=== PATIENT | female | born 1960 | race Caucasian/White ===

== ENCOUNTER 2018-01-05 16:02 | Inpatient (IN) | payer MEDICARE, MEDICAID ==
[~2018-01-05] VITALS: Ht 172.7 cm; Wt 92.5 kg
[2018-01-05] MEDS ORDERED: ZOLPIDEM TARTRATE 10 MG TABLET PO (16:15)
[2018-01-05] MEDS ORDERED: IBU 600 MG TABLET PO (16:15)
[2018-01-05] MEDS ORDERED: LITHIUM CARBONATE 300 MG TAB PO (16:15)
[2018-01-05] MEDS ORDERED: INVEGA TRINZA IM (16:15)
[2018-01-05] MEDS ORDERED: CHLORPROMAZINE 100 MG (16:15)
[2018-01-05 16:39] LABS: *BILIRUBIN,URIN NEGATIVE (NEGATIVE); *BLOOD, URINE NEGATIVE (NEGATIVE); *CLARITY,URINE SLIGHTLY CLOUDY (CLEAR); *COLOR,URINE YELLOW (YELLOW); *KETONES,URINE NEGATIVE (NEGATIVE); *PROTEIN,URINE NEGATIVE (NEGATIVE); *UROBILINOGEN,URINE 0.2 E.U./dl (NORMAL); LEUKOCYTE ESTERASE ,URINE TRACE (NEGATIVE); NITRITE, URINE POSITIVE (NEGATIVE); PH,URINE 5.5 (5.0-8.0); UGLUCOSE NEGATIVE (NEGATIVE)
[2018-01-05 16:48] LABS: BACTERIA,URINE MANY /HPF (NONE SEEN); MUCUS,URINE MODERATE /LPF (0-FEW); SQUAMOUS EPITHELIAL CELL,UR MODERATE /HPF (NONE SEEN)
[2018-01-05 16:49] LABS: BASOPHILS # (AUTO) 0.1 K/uL (0.0-8.0); EOSINOPHILS # (AUTO) 0.2 K/uL (0.0-0.7); HEMATOCRIT 38.8 % (31.2-41.9); HEMOGLOBIN 12.9 g/dL (10.9-14.3); LYMPHOCYTES # (AUTO) 2.6 K/uL (20.0-40.0); LYMPHOCYTES % (AUTO) 26.7 % (20.5-51.5); MEAN CORPUSCULAR HEMOGLOBIN 30.8 uug (24.7-32.8); MEAN CORPUSCULAR HGB CONC 33 g/dL (32.3-35.6); MEAN CORPUSCULAR VOLUME 92.9 fL (75.5-95.3); MONOCYTES # (AUTO) 0.7 K/uL (2.0-10.0); MONOCYTES % (AUTO) 7.6 % (0.0-11.0); NEUTROPHILS # (AUTO) 6.1 K/uL (1.8-8.9); NEUTROPHILS % (AUTO) 62.7 % (38.5-71.5); PLATELET COUNT (AUTO) 352 K/uL (179-408); RED BLOOD CELL COUNT(AUTO) 4.17 MIL/uL (3.63-4.92); WHITE BLOOD COUNT (AUTO) 9.8 K/uL (3.8-11.8)
[2018-01-05 16:55] LABS: *AMPHETAMINE, URINE NEGATIVE (NEGATIVE); *BARBITURATE, URINE NEGATIVE (NEGATIVE); *CANNABINOID, URINE NEGATIVE (NEGATIVE); *COCCAINE, URINE NEGATIVE (NEGATIVE); *OPIATE, URINE NEGATIVE (NEGATIVE); *PHENCYCLIDINE SCREEN,URINE NEGATIVE (NEGATIVE)
[2018-01-05 16:56] LABS: CARBON DIOXIDE 24 mmol/L (21-32); CHLORIDE 104 mmol/L (98-107); CREATININE 0.7 mg/dL (0.6-1.3); GLUCOSE 100 mg/dL (74-106); POTASSIUM 3.6 mmol/L (3.5-5.1); UREA NITROGEN, BLOOD 10 mg/dL (7-18)
[2018-01-05 17:01] LABS: ALANINE AMINOTRANSFERASE 36 U/L (14-59); ALKALINE PHOSPHATASE 92 U/L (50-136); ASPARTATE AMINOTRANSFERASE 26 U/L (15-37); BILIRUBIN,DIRECT 0.1 mg/dL (0.0-0.2); BILIRUBIN,TOTAL 0.4 mg/dL (0.2-1.0); TOTAL PROTEIN, SERUM 7.4 g/dL (6.4-8.2)
[2018-01-05 17:02] LABS: ETHANOL < 3 MG/DL (0-0)
[2018-01-05 17:03] LABS: ACETAMINOPHEN < 2.0 ug/mL (10-30)
--- NOTE | 2018-01-05 17:10 | NUR ---
Per pt is medically clear and may be transfered to MHU.
--- NOTE | 2018-01-05 17:16 | NUR ---
Pt trans to MHU, NAD noted.
[2018-01-05 17:24] LABS: THYROID STIMULATING HORMONE 1.571 mIU/mL (0.358-3.740)
[2018-01-05] MEDS ORDERED: MAGNESIUM HYDROXIDE 30 ML LIQUID UDC PO PRN (17:45)
[2018-01-05] MEDS ORDERED: MAG HYDROX/AL HYDROX/SIMETH 30 ML LIQUID UDC PO PRN (17:45)
--- NOTE | 2018-01-05 19:28 | NUR ---
Unable to Admiit patient in the computer. All paper works done in the chart. Endorsed to shift manager night. Night nurse will do remaining admisssion.
[2018-01-05] MEDS ORDERED: diphenhydrAMINE 50 MG/1 ML VIAL IM ONE (19:30)
[2018-01-05] MEDS ORDERED: HALOPERIDOL LACTATE 5 MG/1 ML VIAL IM ONE (19:30)
[2018-01-05] MEDS ORDERED: LORAZEPAM 2 MG/1 ML VIAL IM ONE (19:30)
[2018-01-05 20:06] VITALS: BP 116/56
[2018-01-05] MEDS ORDERED: diphenhydrAMINE 50 MG/1 ML VIAL ONE (20:09)
[2018-01-05] MEDS ORDERED: ALBUTEROL SULFATE 2.5 MG/3 ML NEBU NEB PRN (22:15)
[2018-01-05] MEDS ORDERED: IPRATROPIUM BROMIDE 0.5 MG/2.5 ML NEBU NEB PRN (22:15)
[2018-01-05] MEDS: NITROFURANTOIN/NITROFURAN MAC 100 MG CAPSULE PO SCH (23:00)
[2018-01-06] MEDS: LORAZEPAM 1 MG TABLET PO PRN ×2 (01:47→08:59)
[2018-01-06] MEDS: NITROFURANTOIN/NITROFURAN MAC 100 MG CAPSULE PO SCH ×3 (01:55→20:32)
--- NOTE | 2018-01-06 02:35 | NUR ---
Received pt to care, pt talking loudly, intrusive, posturing towards staff, demanding, hyperverbal, uncooperative, grandiose delusions, responding to AH & VH. Pt was called on the telephone to try to speak to her and calm her down. Pt re-oriented, pt continued to pace the halls, going into other pt rooms, responding to internal stimuli, demanding to go home, pushing on the exit doors. T/O obtained at 1830 for haldol 5mg/1ml, benadryl 25mg/0.5ml, ativan 2mg/1ml. Pt complied with taking the IM shot without altercation at 1915. Pt continued to pace, cry loudly, yell, at approximately 2145 pt fell asleep. Pt woke up at 2330 responding to internal stimuli, talking loudly, PRN ativan 1 mg given at 0145. Pt was more pleasant but still delusional, pt initially refused antibiotic but stated that she wanted to take med. Med was given as a unscheduled admin at 0145. Pt is A & O x2, pt is tangential, ambulatory, continent, objective signs of urinary frequency noted, pt skin intact, no noted issues. Pt is back asleep at this time. I will continue to monitor.
[2018-01-06] MEDS: NICOTINE 21 MG/24HR PATCH TD SCH (08:33)
[2018-01-06 15:42] VITALS: BP 100/52
[2018-01-06] MEDS ORDERED: FLUPHENAZINE HCL 5 MG TABLET PO ONE (18:15)
[2018-01-06] MEDS ORDERED: BENZTROPINE MESYLATE 1 MG TABLET PO ONE (18:15)
[2018-01-06] MEDS ORDERED: CARBAMAZEPINE 200 MG TABLET PO ONE (18:15)
[2018-01-06] MEDS ORDERED: FLUPHENAZINE HCL 2.5 MG/ML 10ML VIAL IM STA (19:02)
[2018-01-06] MEDS ORDERED: diphenhydrAMINE 50 MG/1 ML VIAL IM STA (19:04)
[2018-01-06] MEDS ORDERED: LORAZEPAM 2 MG/1 ML VIAL IM STA (19:05)
[2018-01-06] MEDS ORDERED: BENZTROPINE MESYLATE 2 MG/2 ML AMPUL IM STA (19:13)
[2018-01-07] MEDS: TEMAZEPAM 7.5 MG CAPSULE PO PRN (01:05)
[2018-01-07] MEDS: LORAZEPAM 1 MG TABLET PO PRN ×2 (02:01→06:09)
--- NOTE | 2018-01-07 07:29 | NUR ---
Patient first observed yelling and hitting the door asking to be let out of the unit. Patient observed to be inappropriate towards staff and peers, unable to redirect. Psychiatrist ordered IM STAT, IM administered as ordered. Patient continued to display bizarre behavior, nonsensical required redirection despite medication. Patient had multiple periods with increased agitation, prns also administered with ineffective outcome. Patient disturbed all other patients on the unit throughout the entire night. Continue to monitor for safety. Patient last observed pacing the hallway inappropriate towards staff and peers.
[2018-01-07] MEDS: CARBAMAZEPINE 200 MG TABLET PO SCH ×3 (09:01→17:01)
[2018-01-07] MEDS: BENZTROPINE MESYLATE 1 MG TABLET PO SCH ×3 (09:01→17:01)
[2018-01-07] MEDS: FLUPHENAZINE HCL 5 MG TABLET PO SCH ×3 (09:01→17:01)
[2018-01-07] MEDS: NITROFURANTOIN/NITROFURAN MAC 100 MG CAPSULE PO SCH ×2 (09:41→20:52)
[2018-01-07] MEDS: NICOTINE 21 MG/24HR PATCH TD SCH (09:41)
[2018-01-07] MEDS: CLONAZEPAM 0.5 MG TABLET PO SCH ×3 (12:37→20:02)
--- NOTE | 2018-01-07 15:33 | NUR ---
Firearms Report: clothing trades workers completed and submitted a [employer] firearms report for a a 5150 DTS/DTO certification.
[2018-01-07 16:02] VITALS: BP 107/55
--- NOTE | 2018-01-07 19:45 | NUR ---
RECEIVED PATIENT IN THE HALLWAY; SHE IS NOTED PACING THE HALLWAY, GOING INTO OTHER PATIENT'S ROOM, GRABBING TRASH CANS, UNABLE TO BE REDIRECTED. PATIENT WAS ALSO NOTED WITH WEAK UNSTEADY GAIT. DR LAST WAS NOTIFY AND NEW ORDER OBTAINED TO PLACE PATIENT ON 1:1 SUPERVISION FOR FALL PRECAUTION. ORDER NOTED AND CARRIED OUT. WILL CONTINUE TO MONITOR.
[2018-01-07 21:04] VITALS: BP 114/54
--- NOTE | 2018-01-08 01:30 | NUR ---
PATIENT NOTED AWAKE, FLIGHT OF IDEAS, UNABLE TO FALL ASLEEP. TEMAZEPAM 7.5MG PO PRN WAS GIVEN FOR INSOMNIA. WILL CONTINUE TO MONITOR.
[2018-01-08] MEDS: TEMAZEPAM 7.5 MG CAPSULE PO PRN (01:32)
--- NOTE | 2018-01-08 03:45 | NUR ---
PATIENT NOTED ANXIOUS AGITATED, TALKING TO HERSELF. ATIVAN 1MG PO PRN WAS OFFERED; HOWEVER PATIENT REFUSED, PATIENT CONTINUE TO 1:1 SUPERVISION FOR FALL PRECAUTION.
[2018-01-08] MEDS: LORAZEPAM 1 MG TABLET PO PRN (05:39)
--- NOTE | 2018-01-08 05:45 | NUR ---
PATIENT CONTINUE ANXIOUS AGITATED TALKING TO HERSELF. ATIVAN 1MG PO PRN WAS GIVEN. WILL CONTINUE TO MONITOR.
--- NOTE | 2018-01-08 06:33 | NUR ---
PATIENT SLEPT FOR APPROX 3.15 HRS THROUGH THE NIGHT. CONTINUE WITH PRESSURE SPEECH, ANXIOUS, PACING THE HALLWAY, WONDERING INTO OTHER PATIENT'S ROOM, RESPONDING TO INTERNAL STIMULI UNREDIRECTABLE, IMPAIRED INSIGHT AND JUDGMENT. PATIENT WILL CONTINUE ON 1:1 SUPERVISION FOR SAFETY.
[2018-01-08 07:30] VITALS: BP 105/59
[2018-01-08] MEDS: CLONAZEPAM 0.5 MG TABLET PO SCH ×2 (09:39→20:16)
[2018-01-08] MEDS: CARBAMAZEPINE 200 MG TABLET PO SCH ×3 (09:39→17:32)
[2018-01-08] MEDS: NITROFURANTOIN/NITROFURAN MAC 100 MG CAPSULE PO SCH ×2 (09:39→20:16)
[2018-01-08] MEDS: FLUPHENAZINE HCL 5 MG TABLET PO SCH ×3 (09:39→17:32)
[2018-01-08] MEDS: NICOTINE 21 MG/24HR PATCH TD SCH (09:40)
[2018-01-08] MEDS: BENZTROPINE MESYLATE 1 MG TABLET PO SCH ×3 (09:40→17:32)
--- NOTE | 2018-01-08 12:04 | NUR ---
Initial Discharge Notes: Currently pt is living at home ([address] [place] [address]) with her Horacio Salcedo ([phone]). Pt is requesting to d/c home with her . Social work will contact pts and collaborate with staff for safe discharge.
[2018-01-08 16:56] VITALS: BP 96/45
[2018-01-08] MEDS ORDERED: TDAP DIPH,PERTUSS,TET VAC/PF 0.5 ML DISP.SYRIN IM ONE (17:00)
--- NOTE | 2018-01-08 17:00 | NUR ---
PT ATTEMPTED TO PET A DOG THAT WAS PRESENT ON THE UNIT AND WAS BITTEN ON THE RIGHT FOURTH FINGER. PT HAS LACERATION ON RIGHT 4TH FINGER. ENRIQUE MANZANARES NP NOTIFIED, HAND X RAY, ORDERS FOR WOUND CONSULT, AND TDAP VACCINE RECEIVED. WOUND CLEANED AND KEPT DRY. WILL CONTINUE TO MONITOR. Addendum: 01/08/18 at 1818 by IGNACIO IRIZARRY RN AMENDMENT: DOG BITE HAPPENED AT 1456.
[2018-01-08] MEDS: BACITRACIN ZINC OINT 15 GM TUBE TOP SCH ×2 (17:51→20:17)
[2018-01-08 20:45] VITALS: BP 93/63
[2018-01-09] MEDS: TEMAZEPAM 7.5 MG CAPSULE PO PRN ×3 (01:01→23:32)
[2018-01-09] MEDS: LORAZEPAM 1 MG TABLET PO PRN (02:45)
--- NOTE | 2018-01-09 06:25 | NUR ---
Pt is more compliant, pt took her scheduled meds, pt very labile, pt would start making noises like she is crying and then start talking about something else in a pleasant mood. Pt slept intermittently. Pt kept req to call her during the late hours of the night. Pt is asking about a bimal speaker to play music. Pt did not come in with a bimal speaker. Pt is disoriented, confused, delusional. Pt refused to take PRN restoril. Pt states that she does not want any more medication because she keeps sleeping. Pt is on 1:1 for safety, pt gait is unsteady when she walks.
[2018-01-09 07:30] VITALS: BP 99/53
[2018-01-09] MEDS: CARBAMAZEPINE 200 MG TABLET PO SCH ×4 (09:00→17:59)
[2018-01-09] MEDS: FLUPHENAZINE HCL 5 MG TABLET PO SCH ×4 (09:00→21:21)
[2018-01-09] MEDS: NICOTINE 21 MG/24HR PATCH TD SCH ×2 (09:00→09:13)
[2018-01-09] MEDS: CLONAZEPAM 0.5 MG TABLET PO SCH ×2 (09:00→09:13)
[2018-01-09] MEDS: BENZTROPINE MESYLATE 1 MG TABLET PO SCH ×4 (09:00→17:59)
[2018-01-09] MEDS: BACITRACIN ZINC OINT 15 GM TUBE TOP SCH ×2 (09:00→21:00)
[2018-01-09] MEDS: NITROFURANTOIN/NITROFURAN MAC 100 MG CAPSULE PO SCH ×2 (09:13→21:21)
--- NOTE | 2018-01-09 11:23 | NUR ---
Discharge Planning: egg worker arrived to patient bedside to discuss discharge plan. Patient presented with hyperverbal, delusional, and disorganized speech and thought process. egg worker inquired why she brought homeless people to her home at 2:30am [as noted in chart] and she stated "they were fine", they had "make-up on". Patient lacking insight, judgment, and safety awareness. egg worker expressed concern for her returning home, however, patient adamant that she return home "as soon as possible". egg worker unable to have meaningful conversation with patient due to delusional thought process and lack of orientation. However, patient did provide name of outpatient mental health provider, Shayla Hernandez [[phone]], who patient states "has all of my information". egg worker will follow-up with outpatient provider. egg worker called and spoke with patient , Horacio Salcedo [[phone]] about patient discharge plan. Per Horacio, patient is unmanageable at home and has unpredictable behavior. Horacio expressed great concern about her returning home and feels he cannot take care of her as he works timekeeping supervisor and cannot afford to lose his job. egg worker explained that a SNF could be an option, but that it would depend on whether she is accepted to one. egg worker discussed conservatorship process with Horacio and offered to provide resources on conservatorship process. egg worker will leave conservatorship resources for Horacio to tow picker when he visits over the weekend. egg worker will look into SNF placement.
--- NOTE | 2018-01-09 11:40 | NUR ---
WOUND CARE CONSULT: PT PRESENTS WITH HEALING SKIN TEAR TO RT 4TH FINGER. NO DRAINAGE NOTED, NO REDNESS, TENDERNESS OR SIGN OF INFECTION. PT EXAMINED BY ENRIQUE MANZANARES D.N.P. AND ORDERS RECEIVED. DISCUSSED WITH NURSING STAFF. WILL SEE PRN.
--- NOTE | 2018-01-09 15:42 | NUR ---
Group Activity Note: Patients were asked to listen to music and engage in conversation about their favorite music/genre of music/and memories they have of music. Subjective: "I want to listen to Joseph Sheikh." Objective: Patient engaged in the activity and initiated conversation with her peers. Patient also attempted to change the song on the Media player several times, and she attempted to unlock the bookshelf with her hands. Assessment: Patient appeared restless, distractible, and labile during the activity. Patient needs support in staying on task and recognizing social cues. Plan: Encourage group attendance as scheduled.
[2018-01-09 16:16] VITALS: BP 111/71
--- NOTE | 2018-01-09 18:17 | NUR ---
patient remains on 1;1 and paranoid about all things medication sprinkled in food in order for patient to take ambulatory in main and day room with 1;1 sitter no behavior problems noted continue to monitor for safety and delusions
[2018-01-09 19:30] VITALS: BP 106/59
--- NOTE | 2018-01-10 06:10 | NUR ---
Pt paced all night long, crying, asking to smoke, praying loudly in kiswahili, trying to open the exit doors, yelling, delusional, asking for her car keys that are missing. Pt initially kept refusing a nicotine patch but property underwriter was able to convince her. Pt states that she wants to go home to her "2 cats and sleep in her own bed". Pt states that she does not want to "sleep in the room with another man". Pt informed that her roommate is a woman, pt states that she still "does not want to sleep in the room" with her. Pt remains on 1:1 for safety. Pt appears manic and not effected by meds, although drowsy body language (stumbling gait, slow hand movements) and with slurred speech. Pt has a high tolerance for the meds, pt appears to be fighting her sleep. Pt states that she "is not fighting my sleep" but does not want to sleep because she has "been asleep for 24 hours" "and the day before that and the day before that". Pt "swears to God" that if we "let her go home I will be good", "I won't talk to myself", "I won't do anything wrong". Pt very labile and tangential.
[2018-01-10 07:30] VITALS: BP 110/56
[2018-01-10] MEDS: CARBAMAZEPINE 200 MG TABLET PO SCH ×4 (08:45→17:00)
[2018-01-10] MEDS: BENZTROPINE MESYLATE 1 MG TABLET PO SCH ×4 (08:45→17:00)
[2018-01-10] MEDS: FLUPHENAZINE HCL 5 MG TABLET PO SCH ×5 (08:45→21:11)
[2018-01-10] MEDS: NITROFURANTOIN/NITROFURAN MAC 100 MG CAPSULE PO SCH (08:45)
[2018-01-10] MEDS: NICOTINE 21 MG/24HR PATCH TD SCH ×2 (08:46→09:00)
[2018-01-10] MEDS: CLONAZEPAM 0.5 MG TABLET PO SCH ×4 (08:55→17:00)
[2018-01-10] MEDS: BACITRACIN ZINC OINT 15 GM TUBE TOP SCH ×2 (09:00→20:47)
--- NOTE | 2018-01-10 13:23 | NUR ---
Gps/Crane Assembler- Remains on 1:1 Nursing supervision for safety. Ambulatory, anxious,labile mood,conversant. Stayed in the activity room during her lunch. Refused all 1300 meds. ,reviewed with patient, claimed she does not needs any mediciations she's just fine. Patient came looking for her Nurse she decided she needs to take her clonopin 0.5 mg 1 tab. only, the rest she does not have to take.Conversant,needy.loud.
[2018-01-10 16:18] VITALS: BP 120/63
--- NOTE | 2018-01-10 18:13 | NUR ---
Gps/Wicker Molded Candles- Refusing her pneumonia vaccine as well as her flu vaccine, per pt. she got her immunization at [facility] Refusing most of her routine medications, was able to take her clonopin 0.5 mg twice today as ordered , but refused the 1700 dose. Remains on 1:1 Nursing supervision for safety.
[2018-01-10 20:00] VITALS: BP 110/56
--- NOTE | 2018-01-10 20:00 | NUR ---
PT SEEN AMBULATING IN HALLWAY WITH SITTER PRESENT. NO S/S OF AGITATION OR SUICIAL IDEATION. STATES SHE ONLY WANTS HER SEROQUEL FOR TONIGHT. NEEDS REORIETATION TO PLACE AND REGARDING PLAN OF CARE. WILL CONTINUE TO MONITOR. V/S ARE WNL. DENIES ANY PAIN OR DISCOMFORT.
[2018-01-10] MEDS: TEMAZEPAM 7.5 MG CAPSULE PO PRN (20:42)
--- NOTE | 2018-01-10 21:04 | NUR ---
PT REFUSED ROUTINE PROLOXIN AND BACITRACIN MEDICATION FOR TONIGHT. STATES SHE ONLY WANTED HER SEROQUEL FOR SLEEP. PT OFFERED RESTORIL FOR SLEEP INSTEAD. DR ALST AWARE OF REFUSING MEDICATIONS. WILL CONTINUE TO MONITOR.
--- NOTE | 2018-01-10 21:17 | NUR ---
DR LAST ABLE TO SPEAK WITH PT AND ENCOURAGE TAKING ROUTINE PROLIXIN. PT ABLE TO TAKE ROUITINE BED TIME MEDICATION BUT REFUSED WOUND CARE OINTMENT. NO S/S OF INFECTION NOTED TO LEFT 4TH DIGIT FINGER.
--- NOTE | 2018-01-11 04:00 | NUR ---
Pt up out of bed pacing hallways. Needs frequent reorientation and redirection. Pt encouraged to sleep more without talking to staff.
--- NOTE | 2018-01-11 06:00 | NUR ---
Pt slept up to 2 hours overnight. Mostly awake and communicating with staff. Needs continuous reminders regarding plan of care and redirection.
[2018-01-11] MEDS: CLONAZEPAM 0.5 MG TABLET PO SCH ×3 (08:45→17:00)
[2018-01-11] MEDS: CARBAMAZEPINE 200 MG TABLET PO SCH ×3 (08:45→17:00)
[2018-01-11] MEDS: FLUPHENAZINE HCL 5 MG TABLET PO SCH ×3 (08:45→21:00)
[2018-01-11] MEDS: BENZTROPINE MESYLATE 1 MG TABLET PO SCH ×3 (08:45→17:00)
[2018-01-11] MEDS: NICOTINE 21 MG/24HR PATCH TD SCH (08:46)
[2018-01-11] MEDS: BACITRACIN ZINC OINT 15 GM TUBE TOP SCH ×2 (08:46→21:00)
--- NOTE | 2018-01-11 08:46 | NUR ---
Gps/Truck Guard- Patient refused all am routine meds.this am. reviewed with patient rationale, educ. re -her meds. still refused, claimed she only takes seroquel med.. and nothing else. Claimed it was a mistake elisabeth she took prolixin tab.after Psychiatrist convinced her into taking . Talkative/conversant jumping from one topics to another.
[2018-01-11 10:23] VITALS: BP 105/66
[2018-01-11] MEDS: ACETAMINOPHEN 325 MG TABLET PO PRN (13:57)
[2018-01-11 15:53] VITALS: BP 107/56
[2018-01-11] MEDS: LORAZEPAM 1 MG TABLET PO PRN (20:06)
--- NOTE | 2018-01-11 20:10 | NUR ---
PATIENT IS VERY ANXIOUS AND PACING THROUGHOUT HALLWAY. PATIENT GIVEN ATIVAN 1MG PO PRN FOR ANXIETY/AGITATION. COMPLIANT WITH TAKING MED. WILL CONTINUE TO MONITOR AND ASSESS.
[2018-01-11 22:05] VITALS: BP 126/58
--- NOTE | 2018-01-11 23:00 | NUR ---
PATIENT STILL VERY ANXIOUS. NEEDS FREQUENT REDIRECTION. LABILE MOOD,. ATIVAN INEFFECTIVE. PATIENT GIVEN RESTORIL 7.5MG PO PRN FOR SLEEP. WILL CONTINUE TO MONITOR AND ASSESS.
[2018-01-11] MEDS: TEMAZEPAM 7.5 MG CAPSULE PO PRN (23:08)
--- NOTE | 2018-01-12 00:08 | NUR ---
RESTORIL INEFFECTIVE. PATIENT NEEDS FREQUENT REDIRECTION.
[2018-01-12 07:30] VITALS: BP 109/58
--- NOTE | 2018-01-12 08:03 | NUR ---
PT NOTED QUITE MANIC, DELUSIONAL AND PARANOID. PT THINKS STAFF IS CONSPIRING AGAINST HER TO KEEP HER FROM "GETTING TO MY TONIGHT." PT NOTED WITH WORD SALAD, HYPERVERBAL, SPEAKING NONSENSICALS MOST TIMES. TANGENTIAL SPEECH. QUITE LABILE AT THIS TIME, WITH SEVERE MOOD SWINGS. ELATED ONE MINUTE, THE NEXT, PT WILL START SOBBING UNCONTROLLABLY. NEEDS FREQUENT REDIRECTION. CONSTANTLY AT NURSES STATION MAKING MULTIPLE NONSENSICAL DEMANDS AND BIZARRE STATEMENTS. STATES SHE NEEDS TO LEAVE TO WALK TO THE "[email or web address]". STATES "LETITIA SAHU IS MY FRIEND, I HAVE HIS NUMBER IN MY PHONE." SHE WILL SWITCH FROM SPEAKING KHMER TO SPEAKING LUXEMBOURGISH AT TIMES. PT ALSO EXHIBITING QUITE BIZARRE BEHAVIOR, ATTEMPTING TO OPEN SHOWER DOOR "BECAUSE I NEED TO GO TO THE BATHROOM IN THE SHOWER." PT FIXATED ON USING TELEPHONE PROVIDED, YET PT JUST DIALS VARIOUS NUMBERS OVER AND OVER AGAIN.
[2018-01-12] MEDS: NICOTINE 21 MG/24HR PATCH TD SCH (09:00)
[2018-01-12] MEDS: BENZTROPINE MESYLATE 1 MG TABLET PO SCH ×3 (09:00→17:00)
[2018-01-12] MEDS: CLONAZEPAM 0.5 MG TABLET PO SCH ×3 (09:00→17:00)
[2018-01-12] MEDS: FLUPHENAZINE HCL 5 MG TABLET PO SCH ×3 (09:00→20:17)
[2018-01-12] MEDS: BACITRACIN ZINC OINT 15 GM TUBE TOP SCH ×2 (09:00→21:00)
[2018-01-12] MEDS: CARBAMAZEPINE 200 MG TABLET PO SCH ×3 (09:00→17:00)
[2018-01-12] MEDS: ACETAMINOPHEN 325 MG TABLET PO PRN (10:11)
[2018-01-12 15:10] VITALS: BP 106/34
--- NOTE | 2018-01-12 15:27 | NUR ---
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 PT ALSO STATES SHE KNOWS LUL AND SURESH LIU. PT IS CURRENTLY FIXATED ON ANOTHER PT, CLAIMING IT IS HER MOTHER, AND WANTS HER MOTHER RELEASED. FREQUENT REDIRECTION NEEDED. REMAINS HIGHLY INTRUSIVE, NEEDY, AND ATTENTION SEEKING.
--- NOTE | 2018-01-12 18:14 | NUR ---
Gps/Head Of Partner Development- Demanding behavior, requesting to give her cigarette for her and her " give us cigarette now, or else i will call on 911 on you, " was loud . Requesting food for her , when tried to redirect pt. gets irritable loud and angry
--- NOTE | 2018-01-12 19:45 | NUR ---
RECEIVED PATIENT IN THE DAY ROOM WATCHING TV. SHE IS NOTED A/O X 1, SHE IS ABLE TO AMBULATE WITH STEADY GAIT AND ABLE TO MAKE HER NEEDS KNOWN. PATIENT CONTINUE WITH FLIGHT OF IDEAS, TANGENTAL, AND DELUSIONAL, HAVING V/H AND AH. SHE STATED TO THIS LADLE CAR OPERATOR, "DO YOU KNOW WHO CAME TO VISIT ME? ADELINA SAHU... AND WE HAD A LONG TALK." SHE DENIES SI AND HI. CONTINUE INTRUSIVE, WONDERING AND PACING THE HALLWAY; HOWEVER, LESS IRRITABLE AND SOMEWHAT REDIRECTABLE. V/S STABLE AT THIS TIME. SAFETY WAS EMPHASIS. WILL CONTINUE TO MONITOR CLOSELY.
[2018-01-12 20:32] VITALS: BP 112/54
[2018-01-13] MEDS: TEMAZEPAM 7.5 MG CAPSULE PO PRN ×2 (01:11→22:35)
--- NOTE | 2018-01-13 01:14 | NUR ---
PATIENT IS NOTED AWAKE, PACING THE HALLWAY. REQUESTING TO SMOKE, REQUESTING FOOD. NEEDY HYPERVERBAL AND CONFUSED. TEMAZEPAM 7.5MG PO PRN WAS GIVEN FOR INSOMNIA. WILL CONTINUE TO MONITOR.
--- NOTE | 2018-01-13 06:38 | NUR ---
PATIENT DID NOT SLEEP LAST NIGHT. SHE CONTINUE PACING THE HALLWAY, DELUSIONAL, HYPERVERBAL, FLIGHT OF IDEAS, DISORGANIZED THINKING. WILL CONTINUE TO MONITOR CLOSELY.
[2018-01-13 07:30] VITALS: BP 106/53
[2018-01-13] MEDS: BENZTROPINE MESYLATE 1 MG TABLET PO SCH ×3 (09:00→17:00)
[2018-01-13] MEDS: FLUPHENAZINE HCL 5 MG TABLET PO SCH ×3 (09:00→21:00)
[2018-01-13] MEDS: NICOTINE 21 MG/24HR PATCH TD SCH (09:00)
[2018-01-13] MEDS: CLONAZEPAM 0.5 MG TABLET PO SCH ×3 (09:00→17:00)
[2018-01-13] MEDS: CARBAMAZEPINE 200 MG TABLET PO SCH ×3 (09:00→17:00)
[2018-01-13] MEDS: BACITRACIN ZINC OINT 15 GM TUBE TOP SCH ×2 (09:00→21:00)
[2018-01-13] MEDS: ACETAMINOPHEN 325 MG TABLET PO PRN (09:10)
[2018-01-13 15:35] VITALS: BP 100/47
--- NOTE | 2018-01-13 18:21 | NUR ---
GPS: Nursing Notes: Non-compliance With Medications: Patient awake and responding to his name, hyperverbal, believes that one of the female patient is her mother, "She is my mother...", argumentative at times, refusing her medications, stated "My doctor told me not to take any medication from here..", "I can only take Motrin..", internally preoccupied, offering her medications several times, but continue to refuse medications, explained the pros and cons of her medications, but continue to refuse her medications, unable to formulate a viable plan for self care, disorganized, poor impulse control at times, gets easily irritable when redirected, continue with treatment plan.
[2018-01-13 20:27] VITALS: BP 120/60
--- NOTE | 2018-01-13 21:00 | NUR ---
PATIENT NOTED A/O X 1. SHE IS ABLE TO MAKE HER NEEDS KNOWN AND ABLE TO AMBULATE WITH STEADY GAIT. SHE CONTINUE DISORGANIZED, DELUSIONAL, HYPERVERBAL, RESPONDING TO INTERNAL STIMULI. HAVING VH/AH. SHE REFUSED ALL HER QHS MEDICATION INCLUDING PROLIXIN. PATIENT STATED, "I DON'T TAKE PROLIXIN, I TAKE SEROQUEL". PATIENT WAS REDIRECTED; SAFETY WAS EMPHASIS. WILL CONTINUE TOP MONITOR.
--- NOTE | 2018-01-13 22:35 | NUR ---
PATIENT NOTED PACING THE HALLWAY, HYPERVERBAL AND INTRUSIVE. TEMAZEPAM 7.5MG PO PRN WAS GIVEN FOR INSOMNIA. PT COMPLIANT WITH PO PRN MEDICATION ONLY, WILL CONTINUE TO MONITOR.
--- NOTE | 2018-01-14 04:44 | NUR ---
PATIENT AWAKE, CONTINUE HYPERVERBAL, FLIGHT OF IDEAS BRIGHT AFFECT. HOWEVER, NO AGGRESSIVE OR COMBATIVE BX NOTED AND DENIES SI AT THIS TIME.
--- NOTE | 2018-01-14 07:00 | NUR ---
PATIENT SLEPT FOR APPROX 1.30 HRS THROUGH THE NIGHT.
[2018-01-14 08:30] VITALS: BP 105/67
[2018-01-14] MEDS: NICOTINE 21 MG/24HR PATCH TD SCH (09:00)
[2018-01-14] MEDS: BENZTROPINE MESYLATE 1 MG TABLET PO SCH ×3 (09:00→16:51)
[2018-01-14] MEDS: FLUPHENAZINE HCL 5 MG TABLET PO SCH ×4 (09:00→22:18)
[2018-01-14] MEDS: CLONAZEPAM 0.5 MG TABLET PO SCH ×3 (09:00→16:51)
[2018-01-14] MEDS: BACITRACIN ZINC OINT 15 GM TUBE TOP SCH ×2 (09:00→21:00)
[2018-01-14] MEDS: CARBAMAZEPINE 200 MG TABLET PO SCH ×3 (09:00→16:51)
[2018-01-14] MEDS: LORAZEPAM 1 MG TABLET PO PRN (10:06)
[2018-01-14] MEDS: ACETAMINOPHEN 325 MG TABLET PO PRN (11:01)
[2018-01-14 16:39] VITALS: BP 109/51
[2018-01-14 20:33] VITALS: BP 118/65
--- NOTE | 2018-01-14 22:18 | NUR ---
Pt initially refused her scheduled HS prolixin 10mg. She later changed her mind and requested the medication which was administered. Will continue to monitor.
[2018-01-15 07:30] VITALS: BP 115/51
[2018-01-15] MEDS: BACITRACIN ZINC OINT 15 GM TUBE TOP SCH ×2 (09:00→20:44)
[2018-01-15] MEDS: CLONAZEPAM 0.5 MG TABLET PO SCH ×3 (10:21→16:45)
[2018-01-15] MEDS: CARBAMAZEPINE 200 MG TABLET PO SCH ×3 (10:21→16:44)
[2018-01-15] MEDS: NICOTINE 21 MG/24HR PATCH TD SCH (10:21)
[2018-01-15] MEDS: FLUPHENAZINE HCL 5 MG TABLET PO SCH ×3 (10:21→20:13)
[2018-01-15] MEDS: BENZTROPINE MESYLATE 1 MG TABLET PO SCH ×3 (10:21→16:44)
[2018-01-15] MEDS ORDERED: BENZTROPINE MESYLATE 2 MG/2 ML AMPUL IM PRN (13:00)
[2018-01-15] MEDS ORDERED: FLUPHENAZINE HCL 2.5 MG/ML 10ML VIAL IM PRN ×2 (13:00→21:00)
[2018-01-15] MEDS ORDERED: BENZTROPINE MESYLATE 2 MG/2 ML AMPUL IM SCH (13:00)
[2018-01-15] MEDS ORDERED: FLUPHENAZINE HCL 2.5 MG/ML 10ML VIAL IM SCH ×2 (13:00→21:00)
--- NOTE | 2018-01-15 14:46 | NUR ---
Discharge Planning: structural steel ironworker mailed Lana Freemanандрей [[phone]] resources including "Mental Health Conservatorship", "Self-Help Conservatorship Clinic: Quick Reference Guide", and "[facility] Resistor Coater Guide" to patient , Horacio [[address] [place] [id number]; ] who had requested them. structural steel ironworker will continue to collaborate with patient, family, and MD on a safe and proper discharge.
[2018-01-15] MEDS: IBUPROFEN 600 MG TABLET PO PRN (16:44)
[2018-01-15 16:56] VITALS: BP 107/57
[2018-01-15 20:10] VITALS: BP 106/50
--- NOTE | 2018-01-16 06:33 | NUR ---
GPS:PATIENT REMAIN AWAKE MOST OF THE NIGHT.SLEPT ONLY 3 HRS THROUGH THE NIGHT.CONTINUE HYPERVERBAL, FLIGHT OF IDEAS BRIGHT AFFECT. HOWEVER, NO AGGRESSIVE OR COMBATIVE BX NOTED AND DENIES SI AT THIS TIME. TOOK SHOWER HIS MORNING.
[2018-01-16 07:30] VITALS: BP 95/37
[2018-01-16] MEDS: CARBAMAZEPINE 200 MG TABLET PO SCH ×3 (08:40→16:27)
[2018-01-16] MEDS: FLUPHENAZINE HCL 5 MG TABLET PO SCH ×3 (08:40→21:25)
[2018-01-16] MEDS: CLONAZEPAM 0.5 MG TABLET PO SCH ×3 (08:40→16:28)
[2018-01-16] MEDS: BENZTROPINE MESYLATE 1 MG TABLET PO SCH ×3 (08:41→16:27)
[2018-01-16] MEDS: BACITRACIN ZINC OINT 15 GM TUBE TOP SCH ×2 (09:00→21:00)
[2018-01-16] MEDS: NICOTINE 21 MG/24HR PATCH TD SCH (09:00)
[2018-01-16] MEDS ORDERED: FLUPHENAZINE HCL 2.5 MG/ML 10ML VIAL IM PRN ×2 (09:00→18:45)
[2018-01-16] MEDS ORDERED: FLUPHENAZINE HCL 2.5 MG/ML 10ML VIAL IM SCH (09:00)
--- NOTE | 2018-01-16 14:39 | NUR ---
Activity group Note: Patients were asked to participate in a [id number] decorating activity where they decorate their pumpkin and then are asked to share it with the group. Subjective: --- Objective: Patient did not attend. Assessment: Patient needs encouragement to participate in group activity and engage with peers. Plan: farmworker turkey farm will encourage group attendance as scheduled. farmworker turkey farm will continue to provide emotional support and guidance in he;ping patient become more engaged with activities and peers.
[2018-01-16 19:44] VITALS: BP 104/50
[2018-01-17] MEDS: TEMAZEPAM 7.5 MG CAPSULE PO PRN (01:13)
--- NOTE | 2018-01-17 05:46 | NUR ---
When science writer came on shift pt [facility] to [facility] to [employer], pt states that she "receives money every month from [employer]". Pt slept intermittently throughout the night. Pt complied with taking her meds but complained that they are making her "talk funny" and "walk funny". Pt woke up many times during the night stating that she lost her "2 cigarettes", pt refused nicotine patch when science writer offered. Pt focused on going outside the unit. Pt disoriented and confused, restless, slurred speech and intermittent unsteady gait. I will continue to monitor.
[2018-01-17 06:59] LABS: BASOPHILS # (AUTO) 0.1 K/uL (0.0-8.0); BASOPHILS % (AUTO) 1.4 % (0.0-2.0); EOSINOPHILS # (AUTO) 0.2 K/uL (0.0-0.7); EOSINOPHILS % (AUTO) 2.1 % (0.0-7.0); HEMATOCRIT 39.4 % (31.2-41.9); HEMOGLOBIN 13.2 g/dL (10.9-14.3); LYMPHOCYTES % (AUTO) 34.7 % (20.5-51.5); MEAN CORPUSCULAR HGB CONC 34 g/dL (32.3-35.6); MEAN CORPUSCULAR VOLUME 92.3 fL (75.5-95.3); MONOCYTES # (AUTO) 0.6 K/uL (2.0-10.0); MONOCYTES % (AUTO) 7.2 % (0.0-11.0); NEUTROPHILS # (AUTO) 4.7 K/uL (1.8-8.9); NEUTROPHILS % (AUTO) 54.6 % (38.5-71.5); PLATELET COUNT (AUTO) 346 K/uL (179-408); RED BLOOD CELL COUNT(AUTO) 4.27 MIL/uL (3.63-4.92); WHITE BLOOD COUNT (AUTO) 8.6 K/uL (3.8-11.8)
[2018-01-17 07:12] LABS: CREATININE 0.7 mg/dL (0.6-1.3); POTASSIUM 4.2 mmol/L (3.5-5.1)
[2018-01-17 08:00] VITALS: BP 101/48
[2018-01-17] MEDS: FLUPHENAZINE HCL 5 MG TABLET PO SCH ×3 (08:27→21:44)
[2018-01-17] MEDS: BENZTROPINE MESYLATE 1 MG TABLET PO SCH ×3 (08:27→17:00)
[2018-01-17] MEDS: CLONAZEPAM 0.5 MG TABLET PO SCH ×3 (08:27→17:00)
[2018-01-17] MEDS: CARBAMAZEPINE 200 MG TABLET PO SCH ×3 (08:27→17:00)
[2018-01-17] MEDS: BACITRACIN ZINC OINT 15 GM TUBE TOP SCH ×2 (08:35→21:00)
[2018-01-17] MEDS: NICOTINE 21 MG/24HR PATCH TD SCH (08:35)
[2018-01-17 16:00] VITALS: BP 109/63
[2018-01-17 20:00] VITALS: BP 101/50
--- NOTE | 2018-01-17 20:00 | NUR ---
Received patient in her room in bed. she is noted sleeping but easily arousable. she is noted A/Ox1 disorganized and confused. Slurred speech, impaired insight and judgment noted as to the reason for her admission to MHU. safety is emphasis. bed at lowest position with wheels locked room well-lit and free from clutter. will continue to monitor.
--- NOTE | 2018-01-17 22:00 | NUR ---
patient noted awake, pacing the hallway. slurred speech with flight of ideas and intermittent unsteady gait is noted. snacks were given. safety emphasis. will continue to monitor closely.
[2018-01-18] MEDS: IBUPROFEN 600 MG TABLET PO PRN (03:44)
--- NOTE | 2018-01-18 07:00 | NUR ---
PATIENT SLEPT FOR APPROX 5.00 HRS THROUGH THE NIGHT. CONTINUE HYPERVERBAL, NEEDY, DELUSIONAL AND DISORGANIZED. WILL NO AGGRESSIVE/COMBATIVE BX NOTED OR REPORTED DURING THE SHIFT.
[2018-01-18 07:30] VITALS: BP 105/57
[2018-01-18] MEDS: FLUPHENAZINE HCL 5 MG TABLET PO SCH ×2 (08:30→20:34)
[2018-01-18] MEDS: BACITRACIN ZINC OINT 15 GM TUBE TOP SCH ×2 (08:30→21:00)
[2018-01-18] MEDS: CARBAMAZEPINE 200 MG TABLET PO SCH ×3 (08:31→17:20)
[2018-01-18] MEDS: NICOTINE 21 MG/24HR PATCH TD SCH (08:31)
[2018-01-18] MEDS: BENZTROPINE MESYLATE 1 MG TABLET PO SCH ×3 (08:31→17:20)
[2018-01-18 16:00] VITALS: BP 103/56
--- NOTE | 2018-01-18 16:04 | NUR ---
Activity Group note: GOAL Patient will actively participate in the group activity of the day or relax in the activity room with fellow patients. INTERVENTION Dolphin Researcher invited patient to participate in a group activity consisting of board games, coloring books, and word puzzles held from 10-10:45 am in the activities room. RESPONSE Patient expressed interest in participating in group activity. Patient worked and completed a word search for about 15 minutes. Patient was verbally interactive with peers and social service director. Patient was happy and cooperative throughout activity. PLAN Patient will be invited to attend the next group activity.
[2018-01-18 20:00] VITALS: BP 106/54
[2018-01-19] MEDS: NICOTINE 21 MG/24HR PATCH TD SCH ×2 (01:38→09:14)
--- NOTE | 2018-01-19 06:13 | NUR ---
Pt complied with taking her medication, pt spoke on the telephone to her . Pt is not as aggressive, intrusive, disoriented as when she first came to MHU. Security Operations Analyst spoke on the phone to pt and he stated that "he knows when his is better and she is not ready to be d/c'd". He complained that her speech is "slurred" and that it "has only been 2 weeks". Security Operations Analyst mentioned conversation to Dr. Gonzalez. The plan is to d/c pt on Sunday if she does well over the weekend. Patient is aware. I will continue to monitor.
[2018-01-19 07:30] VITALS: BP 108/49
[2018-01-19] MEDS: BACITRACIN ZINC OINT 15 GM TUBE TOP SCH ×2 (09:00→21:00)
[2018-01-19] MEDS: CARBAMAZEPINE 200 MG TABLET PO SCH ×3 (09:14→16:47)
[2018-01-19] MEDS: BENZTROPINE MESYLATE 1 MG TABLET PO SCH ×2 (09:14→21:19)
[2018-01-19] MEDS: FLUPHENAZINE HCL 5 MG TABLET PO SCH ×2 (09:14→21:18)
[2018-01-19 16:40] VITALS: BP 98/58
[2018-01-19 19:42] VITALS: BP 115/50
[2018-01-20 07:30] VITALS: BP 103/45
[2018-01-20] MEDS: NICOTINE 21 MG/24HR PATCH TD SCH (09:00)
[2018-01-20] MEDS: BACITRACIN ZINC OINT 15 GM TUBE TOP SCH ×2 (09:00→21:00)
[2018-01-20] MEDS: BENZTROPINE MESYLATE 1 MG TABLET PO SCH ×2 (09:04→20:10)
[2018-01-20] MEDS: CARBAMAZEPINE 200 MG TABLET PO SCH ×3 (09:05→16:31)
[2018-01-20] MEDS: FLUPHENAZINE HCL 5 MG TABLET PO SCH ×2 (09:05→20:10)
[2018-01-20 15:26] VITALS: BP 91/54
[2018-01-20 20:21] VITALS: BP 110/54
[2018-01-21 07:30] VITALS: BP 103/56
[2018-01-21] MEDS: BENZTROPINE MESYLATE 1 MG TABLET PO SCH (08:28)
[2018-01-21] MEDS: FLUPHENAZINE HCL 5 MG TABLET PO SCH (08:28)
[2018-01-21] MEDS: ACETAMINOPHEN 325 MG TABLET PO PRN (08:29)
[2018-01-21] MEDS: CARBAMAZEPINE 200 MG TABLET PO SCH ×2 (08:33→12:28)
[2018-01-21] MEDS: BACITRACIN ZINC OINT 15 GM TUBE TOP SCH (08:34)
[2018-01-21] MEDS: NICOTINE 21 MG/24HR PATCH TD SCH (08:34)
--- NOTE | 2018-01-21 10:47 | NUR ---
Discharge Note: Patient will be discharged back to her apartment [[address] [address]; ] and will receive transportation via taxi at 2:00pm. Please arrange taxi for this patient. bench worker helper called patients , Horacio Salcedo [[phone]], twice and left two voicemails explaining patient discharge plan. Patient is alert and oriented x3 and denies SI/HI. Patient is aware and agreeable with discharge plan and has keys to get into her apartment which were provided by over the weekend. Patient will follow-up as an outpatient with Dr. Shayla Hernandez [[phone]] and has an appointment scheduled at [facility] [[address] [place] [address]] on January 23, 2018 at 3:00pm. bench worker helper has faxed continuing care packet to patients outpatient MD. bench worker helper has provided patient with mental health resources including [facility] Crisis Line , Marielena Somers , and the National Suicide Prevention Lifeline . Addendum: 01/21/18 at 1421 by EVELIO VANEGAS Additional Information: Patient was accepted by [facility] [ph: [phone]; fax; [phone]] and this was confirmed by Mandy, enrollment coordinator, at facility. Patient will receive medication management and nurse evaluation. Per Ani, they will call patient to arrange a time to come out for assessment.
--- NOTE | 2018-01-21 13:45 | NUR ---
GPS: Nursing Notes: Discharge Notes: Patient is awake and responding to her name, cooperative with nursing care, compliant with her medications, following staff directions, denies any SI/HI, denies any AH/VH, denies any pain or discomfort, denies any SOB, discharge home with her , Horacio Salcedo at [address], [place] [address] , transported via [employer], took all her belongings with her. Patient will follow-up as an outpatient with Dr. Shayla Hernandez [[phone]] and has an appointment scheduled at [facility] [[address] [place] [address]] on January 23, 2018 at 3:00pm. submarine worker has faxed continuing care packet to patients outpatient MD. submarine worker has provided patient with mental health resources including [facility] Crisis Line , Marielena Somers , and the National Suicide Prevention Lifeline . Patient was accepted by [facility] [ph: [phone]; fax; [phone]] and this was confirmed by Mandy, airport operations coordinator at facility. Patient will receive medication management and nurse evaluation. Per Mandy, they will call patient to arrange a time to come out for assessment.
== END 2018-01-21 13:45 | disposition home health service (06) | DRG 885 ==
LOC: ER 16:06 → GPS 17:11
PROVIDERS: ADMIT Psychiatry & Neurology Psychiatry; ATTEND Internal Medicine
DX: F31.2 Bipolar disorder, current episode manic severe with psychotic features (principal); N39.0 Urinary tract infection, site not specified; B96.20 Unspecified Escherichia coli [E. coli] as the cause of diseases classified elsewhere; Z16.11 Resistance to penicillins; G47.00 Insomnia, unspecified; E66.9 Obesity, unspecified; Z68.31 Body mass index [BMI] 31.0-31.9, adult; Z71.3 Dietary counseling and surveillance; S60.414A Abrasion of right ring finger, initial encounter; W54.0XXA Bitten by dog, initial encounter; Y92.230 Patient room in hospital as the place of occurrence of the external cause; Y99.8 Other external cause status; E78.5 Hyperlipidemia, unspecified; Z91.19 Patient's noncompliance with other medical treatment and regimen; Z91.14 Patient's other noncompliance with medication regimen; Z86.59 Personal history of other mental and behavioral disorders
CPT/HCPCS: 36415; 70030-TC; 71045; 73130; 80307; 84443; 85025; 87077; 87086; 90715; 93005; A4663; G0480; G0480-TC; J0515; J1200; J1630; J2060; J2680